=== PATIENT | male | born 1955 | race American Indian/Alaskan Native ===

== ENCOUNTER 2016-04-24 14:02 | Observation (INO) | payer MEDICARE ==
[2016-04-24] MEDS ORDERED: Albuterol/Ipratropium NEB.SOL* Albuterol 2.5 MG/Ipratropium 0.5 MG 3 ML INH ONE ×2 (14:17→14:20)
[2016-04-24] MEDS ORDERED: methylPREDNISolone 125 MG* 2 ML VIAL IV ONE ×2 (14:22→20:23)
[2016-04-24 14:46] LABS: Hematocrit 44 % (42-52); Hemoglobin 14.8 g/dl (14.0-18.0); Mean Corpuscular HGB Conc 34 g/dl (31-36); Mean Corpuscular Hemoglobin 28 pg (27-31); Mean Corpuscular Volume 84 fL (80-94); Mean Platelet Volume 8 um3 (7.4-10.4); Red Blood Count 5.22 10^6/ul (4.0-5.4); Red Cell Distribution Width 15 % (10.5-15); White Blood Count 10.4 10^3/ul (3.5-10.8)
--- NOTE | 2016-04-24 14:55 | RAD ---
INDICATION: Chest pain COMPARISON: January 07, 2013 TECHNIQUE: An AP portable view obtained at 1337 hours is submitted. FINDINGS: Bones/Soft Tissues: There are no acute bony findings. Cardiomediastinal: The cardiomediastinal silhouette is normal. Lungs: There are no acute infiltrates. There are chronic interstitial changes Pleura: There are no pleural effusions. Other: None IMPRESSION: CHRONIC INTERSTITIAL CHANGES, UNCHANGED.
[2016-04-24 15:12] LABS: Albumin 4.4 g/dL (3.2-5.2); BUN/Creatinine Ratio 15.1 (8-20); Calcium 9.2 mg/dL (8.6-10.3); EGFR Non-African American 71.5 (>60); Potassium 4.2 mmol/L (3.5-5.0); Total Bilirubin 0.4 mg/dL (0.2-1.0); Total Protein 7.4 g/dL (6.4-8.9)
[2016-04-24] MEDS ORDERED: DOXYcycline IV* 100 MG in NS 0.9% 250 ML* 250 ML IVPB ONE (15:25)
[2016-04-24] MEDS ORDERED: Albuterol/Ipratropium NEB.SOL* Albuterol 2.5 MG/Ipratropium 0.5 MG 3 ML ONE (16:09)
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
[2016-04-24] MEDS: Enoxaparin(*) 40 MG/0.4 ML SYR SUBCUT SCH (17:02)
[2016-04-24 17:16] LABS: Troponin I 0.01 ng/mL (<0.04)
[2016-04-24] MEDS ORDERED: Albuterol/Ipratropium NEB.SOL* Albuterol 2.5 MG/Ipratropium 0.5 MG 3 ML INH SCH (18:00)
[2016-04-24] MEDS: Albuterol/Ipratropium NEB.SOL* Albuterol 2.5 MG/Ipratropium 0.5 MG 3 ML INH SCH ×2 (19:57→23:43)
[2016-04-24] MEDS ORDERED: Mometasone/Formoter 100/5 MDI INH SCH (21:00)
[2016-04-25] MEDS: Albuterol/Ipratropium NEB.SOL* Albuterol 2.5 MG/Ipratropium 0.5 MG 3 ML INH SCH ×5 (04:04→14:21)
[2016-04-25] MEDS: DOXYcycline IV* 100 MG in NS 0.9% 250 ML* 250 ML IVPB SCH ×2 (04:18→15:35)
[2016-04-25] MEDS ORDERED: Omeprazole CAP* 20 MG PO SCH (06:00)
[2016-04-25] MEDS ORDERED: predniSONE TAB* 20 MG PO SCH (08:30)
[2016-04-25] MEDS ORDERED: Furosemide TAB* 20 MG PO SCH (09:00)
[2016-04-25] MEDS ORDERED: Spiriva Inhaler DEVICE* 1 EACH DEVICE INH ONE (09:00)
[2016-04-25] MEDS ORDERED: Mometasone/Formoter 200/5 MDI INH SCH (09:00)
[2016-04-25] MEDS ORDERED: Tiotropium CAP.INH* CAP.INH/18 MCG (USE ORDER SET !) INH SCH ×2 (09:00)
[2016-04-25 16:00] VITALS: BP 139/76
[2016-04-25] MEDS: Enoxaparin(*) 40 MG/0.4 ML SYR SUBCUT SCH (16:39)
--- NOTE | 2016-04-26 01:24 | DS ---
CC: Dr. King DISCHARGE SUMMARY: DATE OF ADMISSION: 04/24/16 DATE OF DISCHARGE: 04/25/16 PRIMARY CARE PROVIDER: Philippe King MD DISCHARGE DIAGNOSES: 1. Chronic obstructive pulmonary disease exacerbation. 2. Acute bronchitis. SECONDARY DIAGNOSIS: Chronic obstructive pulmonary disease, on oxygen at 3 L continuously at home. MEDICATIONS AT DISCHARGE: Include: 1. Albuterol and Atrovent nebulizers every 4 hours p.r.n. 2. Albuterol inhaler 2 puffs every 4 hours p.r.n. 3. Ascorbic acid 500 mg daily. 4. Doxycycline 100 mg 1 tablet p.o. b.i.d. for 7 days total. 5. Advair Diskus 500/50 mcg 1 puff b.i.d. 6. Lasix 20 mg daily. 7. Ibuprofen 800 mg every 6 hours p.r.n. 8. Omeprazole 20 mg daily. 9. Spiriva 1 inhalation daily. 10. Prednisone 50 mg daily for 5 days total. LABORATORY DATA AND STUDIES PERFORMED DURING THE HOSPITAL STAY: Unchanged from admission. HOSPITALIZATION COURSE: Jey Vogel is a 60-year-old male with a history of obesity and COPD, on oxy gen at 3 L continuously who presented with COPD exacerbation. The patient was placed on steroids an d nebulizer treatments and he improved enough to be able to go home on 04/25/16. PHYSICAL EXAMINATION AT THE TIME OF DISCHARGE: General: The patient is a very pleasant 60-year-old male, who is in no acute distress. Alert, awake, and oriented x3. Vital signs: Blood pressure of 139/76, heart rate of 96 and regular, respiratory rate 20, oxygen saturation 96% on 3 L of oxygen n arsenio cannula, and temperature 98.1. HEENT: Head: Atraumatic, normocephalic. Eyes: Pupils equal, reactive to light and accommodation. Oropharynx clear. Mucosa moist. Neck: Supple. No JVD, no b ruit bilaterally. Respiratory: Distant breath sounds bilaterally. No wheezing. Cardiovascular: Regular rate and rhythm. No murmur. Abdomen: Protuberant, soft, and nontender. Bowel sounds prese nt in all 4 quadrants. Extremities: There is +1 pitting pedal edema. Pulses are +2 bilaterally. No clubbing or cyanosis. Neuro Evaluation: Speech clear. Cranial nerves II through XII grossly in tact. Motor strength is 5/5 bilaterally. DISCHARGE INSTRUCTIONS: At discharge, the patient is recommended to follow up with Dr. King in ap proximately 4 to 7 days and our office is in the process of scheduling this appointment. Please note that this is a short synopsis of the patient's hospitalization. Please refer to further medical records for details. [id number]/[facility] #: [id number]
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
== END 2016-04-25 18:00 | disposition home or self-care (01) ==
LOC: ED 14:02 → INTOOBSV 16:29 → MED 16:29
PROVIDERS: ADMIT Internal Medicine; ATTEND Internal Medicine
DX: J44.1 Chronic obstructive pulmonary disease with (acute) exacerbation (principal); J20.9 Acute bronchitis, unspecified; J44.0 Chronic obstructive pulmonary disease with (acute) lower respiratory infection; Z87.891 Personal history of nicotine dependence; E66.01 Morbid (severe) obesity due to excess calories; G47.33 Obstructive sleep apnea (adult) (pediatric); E78.00 Pure hypercholesterolemia, unspecified; K21.9 Gastro-esophageal reflux disease without esophagitis; R07.9 Chest pain, unspecified; R94.31 Abnormal electrocardiogram [ECG] [EKG]; Z99.81 Dependence on supplemental oxygen; Z79.899 Other long term (current) drug therapy; Z88.0 Allergy status to penicillin; Z88.1 Allergy status to other antibiotic agents
CPT/HCPCS: 36415; 71010; 80053; 82550; 82553; 83605; 83874; 83880; 84484; 85025; 85610; 85730; 87040; 93005; 94640; 94760; 96365; 96375; 96376; 99284; A9270-GY; G0378; J1650; J2930; J7512

== ENCOUNTER 2017-04-15 09:39 | Inpatient (IN) | payer MEDICARE ==
[2017-04-15] MEDS ORDERED: Albuterol/Ipratropium NEB.SOL* Albuterol 2.5 MG/Ipratropium 0.5 MG 3 ML ONE (10:00)
[2017-04-15] MEDS ORDERED: methylPREDNISolone 125 MG* 2 ML VIAL ONE (10:01)
[2017-04-15] MEDS ORDERED: methylPREDNISolone 125 MG* 2 ML VIAL IV ONE (10:05)
[2017-04-15] MEDS ORDERED: Albuterol/Ipratropium NEB.SOL* Albuterol 2.5 MG/Ipratropium 0.5 MG 3 ML INH ONE ×3 (10:05→10:16)
[2017-04-15] MEDS ORDERED: Magnesium Sulfate 2 GM IV* 2 GM/50 ML BAG IVPB ONE (10:07)
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
[2017-04-15] MEDS ORDERED: Ketorolac INJ* 30 MG/ML 1 ML VIAL IV PUSH ONE (10:35)
[2017-04-15 10:37] LABS: ABS Basophils 0 10^3/ul (0-0.2); ABS Eosinophils 0.2 10^3/ul (0-0.6); ABS Lymphocytes 0.7 10^3/ul (1.0-4.8); ABS Neutrophils 10.4 10^3/ul (1.5-7.7); ABS Nucleated RBC 0 10^3/ul; Eosinophil % 1.3 % (0-6); Hematocrit 44 % (42-52); Hemoglobin 14.5 g/dl (14.0-18.0); Lymphocyte % 5.4 % (25-47); Mean Corpuscular HGB Conc 33 g/dl (31-36); Mean Corpuscular Hemoglobin 28 pg (27-31); Mean Corpuscular Volume 85 fL (80-94); Mean Platelet Volume 8 um3 (7.4-10.4); Nucleated Red Blood Cells % 0; Platelet Count 308 10^3/ul (150-450); Red Blood Count 5.15 10^6/ul (4.0-5.4); Red Cell Distribution Width 15 % (10.5-15); White Blood Count 12.2 10^3/ul (3.5-10.8)
[2017-04-15] MEDS ORDERED: Ketorolac INJ* 15 MG/ML 1 ML VIAL ONE (10:52)
--- NOTE | 2017-04-15 10:58 | RAD ---
HISTORY: Cough, wheezing COMPARISONS: October 22, 2016 VIEWS: 1: frontal portable view of the chest at 10:30 AM FINDINGS: LINES AND TUBES: None. CARDIOMEDIASTINAL SILHOUETTE: The cardiomediastinal silhouette is normal for portable technique. PLEURA: The costophrenic angles are sharp. No pleural abnormalities are noted. LUNG PARENCHYMA: There is diffuse pattern of reticular opacification. ABDOMEN: The upper abdomen is clear. There is no subphrenic gas. BONES AND SOFT TISSUES: No bone or soft tissue abnormalities are noted. IMPRESSION: DIFFUSE INTERSTITIAL OPACIFICATION SUGGESTIVE OF CHRONIC INTERSTITIAL DISEASE VERSUS PULMONARY INTERSTITIAL EDEMA, SIMILAR TO THE PREVIOUS EXAMINATION
[2017-04-15] MEDS ORDERED: Oseltamivir CAP* 75 MG PO ONE (11:09)
[2017-04-15 11:30] LABS: EGFR Non-African American 77.1 (>60)
[2017-04-15] MEDS ORDERED: NS 0.9% 1000 ML* 1,000 ML IV ONE (11:39)
[2017-04-15] MEDS ORDERED: Albuterol 2.5 MG/3 ML NEB.SOL* (0.083%) INH PRN (11:39)
[2017-04-15] MEDS ORDERED: Aspirin Low Dose CHEW TAB* 81 MG PO ONE (11:48)
[2017-04-15] MEDS ORDERED: Azithromycin IV(*) 500 MG in D5W 250 ML BAG* 250 ML IVPB SCH (12:00)
[2017-04-15] MEDS: predniSONE TAB* 20 MG PO SCH (12:34)
[2017-04-15] MEDS: NS 0.9% 1000 ML* 1,000 ML IV SCH (13:26)
[2017-04-15] MEDS: Heparin VIAL(*) 5000 UNITS/ML VIAL (FIVE THOUSAND) SUBCUT SCH ×2 (13:41→21:49)
[2017-04-15] MEDS: Albuterol/Ipratropium NEB.SOL* Albuterol 2.5 MG/Ipratropium 0.5 MG 3 ML INH SCH ×3 (14:06→23:17)
[2017-04-15 14:11] LABS: Urine Appearance Clear; Urine Blood Negative (Negative); Urine Color Yellow; Urine Ketones Negative (Negative); Urine Protein Negative (Negative); Urine Urobilinogen Negative (Negative)
[2017-04-15] MEDS: Azithromycin IV(*) 500 MG in NS 0.9% 250 ML* 250 ML IVPB SCH (14:33)
--- NOTE | 2017-04-15 15:19 | HP ---
CC: Dr. King * HISTORY AND PHYSICAL: DATE OF ADMISSION: 04/15/17 PRIMARY CARE PROVIDER: Dr. King. ATTENDING PHYSICIAN WHILE IN THE HOSPITAL: Dr. Keila Purvis * (report dictated by Epifanio Lyles NP). CHIEF COMPLAINT: 1. Cough. 2. Shortness of breath. 3. Chest pain. HISTORY OF PRESENT ILLNESS: Mr. Vogel is a 61-year-old male patient, he carries a history of COPD. He says he has been feeling under the weather and sick for the last several weeks. He had a cold he says about a month ago, he got over it, but then in the last 10 days, he has had sinus congestion. He has been bringing up some green-type sputum. He has had rhinorrhea. He has had the sore throat. About the last 3 days, he has been having sharp stabbing chest discomfort from his throat all the way down to his left ribs, much worse when he coughs and it has been constant for the last 3 days. For the last 2 days, he has had more shortness of breath particularly with exertion. He says the pain in his chest has been getting worse with exertion. It has been constant and it gets a lot worse when he is coughing or when he takes a deep breath, and he says that this is like a sharp stabbing pain. He says that he has not had any weight gain. He says he has been aching all over. He has had chills. He has felt a little bit of nausea. He says he was on an antibiotic initially for the questionable sinus infection, 10 days ago, he has finished it and he just started another course of Biaxin. He just has had not been getting any better and because of his breathing getting worse particularly with any type of exertion, the worsening cough, aching, and the fevers, he decided to come into the ED today because he just was not getting any better. Ultimately, he was found to have flu and elevated troponin of 0.05. We were asked to evaluate for admission. He denies any calf or leg pain. He denies having any orthopnea and denies having any loss of consciousness. PAST MEDICAL HISTORY: Significant for: 1. COPD. 2. Trigeminal neuralgia. 3. VANESSA. PAST SURGICAL HISTORY: He has had: 1. Cataract extraction. 2. Tonsillectomy. 3. Hernia repair. MEDICATIONS: His home meds include: 1. Albuterol 2 puffs inhaled every 4 hours. 2. Albuterol nebulizer 1 neb every 4 hours as needed. 3. Ibuprofen 800 mg every 6 hours as needed. 4. Lasix 20 mg p.o. daily. 5. Advair 1 puff inhaled b.i.d. 6. Vitamin C 500 mg p.o. daily. 7. DuoNeb 1 neb every 3 hours as needed. 8. Prilosec 20 mg daily. 9. Atrovent 0.5 mg inhaled every 4 hours as needed. 10. Prednisone 50 mg daily as needed. We will need to clarify that with his PCP. 11. Spiriva 1 capsule inhaled daily. 12. Biaxin 500 mg p.o. b.i.d. ALLERGIES TO MEDICATIONS: Include PENICILLIN and LEVAQUIN. FAMILY HISTORY: Mother had history of heart disease and Santillan-Silvestre. Father had history of COPD. SOCIAL HISTORY: He is a former smoker. He does not drink alcohol. His surrogate decision maker is his significant other, Kati. REVIEW OF SYSTEMS: There is no documented fever. He did admit to having chills. He denies having any significant weight change. There was no double vision. He denies having any ear discharge. There was some rhinorrhea. There is sore throat. There is congestion. He denies having any abdominal pain. He does admit to having chest pain, described as sharp in nature and constant for the last 2 to 3 days, worse with cough and deep breath. Denies having any abdominal pain. He did admit to having some nausea, but no vomiting, no dysuria , no frequency. He denied any loss of consciousness. No pruritus and no skin ulcerations. Denies any seizure activity or any loss of consciousness. Review of 14 systems completed, all others negative. PHYSICAL EXAMINATION GENERAL: At this time, Mr. Vogel is a 61-year-old male patient, he is morbidly obese. He is sitting in the ED stretcher. He does not appear to be in any acute distress. VITAL SIGNS: Reveal blood pressure 145/87, pulse 94, respirations initially were 24, his O2 sats 96% on 2 L, temperature 98.8. Respirations now are 18 and his heart rate is about 103. HEENT: Head, atraumatic and normocephalic. Eyes: EOMs are intact. Sclerae were anicteric and not pale. Throat: Oral mucosa appears to be dry. No oropharyngeal erythema. NECK: Supple. LUNGS: He had wheezing noted, expiratory throughout. No rhonchi or rales were noted. HEART: Sounds S1 and S2, regular rate and rhythm. He had no murmurs, rubs, or gallops. ABDOMEN: Soft, flat, nontender. Bowel sounds present. EXTREMITIES: Pulses were 2+ throughout. He had no peripheral edema. He is moving all 4 extremities with 5/5 strength. NEUROLOGIC: The patient is awake, alert, oriented x3. His tongue is midline. Seaming Machine Operator were equal. He had no gross focal deficits. SKIN: Grossly intact. DIAGNOSTIC STUDIES/LAB DATA: WBC 12.2, RBC of 5.15, hemoglobin of 14.5, hematocrit of 44, and platelet count of 308. Blood gas showed pH of 7.43, PCO2 of 40, PO2 of 88. His sodium was 133, potassium of 4, chloride 97, bicarb 27, BUN 15, creatinine 0.99, glucose 141, calcium 9.1, mag 2.0. Total bili 0.6, AST 23, ALT 37, alk phos 52. CK . Troponin 0.05. Albumin of 4.5. Serology was positive for flu. He had a chest x-ray obtained today. My impression: I did not appreciate any acute infiltrates. It looks like he has diffuse opacification suggestive of chronic interstitial lung disease as per radiology report versus pulmonary interstitial edema similar to the previous exam. Reviewing the previous exam from a year ago, it does appear to be similar. He did have an EKG obtained today as well. EKG shows sinus tachycardia with a rate of 112. He does have a right bundle branch block. In reviewing the previous EKG, he did appear to have incomplete right bundle branch block previously and is now complete. Old medical records were reviewed. ASSESSMENT AND PLAN: Mr. Vogel is a 61-year-old male patient coming into the ED today with complaints of cough, weakness, aching all over, and just not feeling well, particularly the last couple of days, previously leading up to this having upper respiratory infection symptoms, on evaluation, was found to have influenza. He will be admitted under observation status for: 1. Chronic obstructive pulmonary disease exacerbation secondary to influenza. At this point, we will go ahead and put him on steroids, nebs every 4 hours, p.r.n. albuterol. We also will start him on Tamiflu and I am going to put him on prednisone in addition to his azithromycin and ceftriaxone. We will go ahead and get legionella antigen, Strep pneumo antigen. I will check his lactate. I did also order blood cultures as well. We can give him 1 liter of fluids now and then normal saline at 100 an hour and continue to follow him closely. 2. Indeterminate troponin. Again, he was having chest pain, but this does sound like it is pleuritic in nature related to his most likely the flu and chronic obstructive pulmonary disease exacerbation. secondary to demand ischemia due to the chronic obstructive pulmonary disease exacerbation. The plan will be to trend these. If they go up, I will get an echocardiogram and I would also get Cardiology consult. I am going to put the patient on aspirin for now. He is not having any chest pain, it is really only when he coughs, so again, I think this is most likely due to his chronic obstructive pulmonary disease exacerbation and some demand ischemia. We will trend these and follow. When he is over the flu, his PCP can consider an outpatient stress test. 3. Trigeminal neuralgia. Not an active issue. 4. Obstructive sleep apnea. He says he wears BiPAP at night. I did place this as an order. 5. DVT prophylaxis. He was placed on heparin subcu. 6. Code status. He is full code. 7. Fluids, electrolytes, and nutrition. He can have a regular diet. TIME SPENT: On the admission was 60 minutes, greater than half the time was spent [id number] with the patient obtaining my history and physical; the other half time was spent going over the plan of care with the patient and implementing plan of care. I did discuss the plan of care with my attending, Dr. Purvis; she is in agreement. EPIFANIO LYLES NP [id number]/[facility] #: [id number] NANDINI
[2017-04-15] MEDS: cefTRIAXone(*) 1 GM in NS 0.9% 50 ML* 50 ML IVPB SCH (18:17)
[2017-04-15] MEDS: Mometasone/Formoter 200/5 MDI INH SCH (19:59)
[2017-04-15] MEDS: Oseltamivir CAP* 75 MG PO SCH (21:49)
[2017-04-15] MEDS ORDERED: Ibuprofen TAB* 600 MG PO ONE (22:20)
[2017-04-15] MEDS ORDERED: Ibuprofen TAB* 600 MG ONE (23:26)
[2017-04-16] MEDS: Albuterol/Ipratropium NEB.SOL* Albuterol 2.5 MG/Ipratropium 0.5 MG 3 ML INH SCH ×6 (03:41→23:21)
[2017-04-16] MEDS: NS 0.9% 1000 ML* 1,000 ML IV SCH (04:06)
[2017-04-16] MEDS: Heparin VIAL(*) 5000 UNITS/ML VIAL (FIVE THOUSAND) SUBCUT SCH ×3 (06:07→21:57)
[2017-04-16 06:31] LABS: ABS Basophils 0 10^3/ul (0-0.2); ABS Eosinophils 0 10^3/ul (0-0.6); ABS Lymphocytes 0.5 10^3/ul (1.0-4.8); ABS Monocytes 0.6 10^3/ul (0-0.8); ABS Neutrophils 11.9 10^3/ul (1.5-7.7); ABS Nucleated RBC 0.02 10^3/ul; Eosinophil % 0 % (0-6); Hematocrit 40 % (42-52); Hemoglobin 13.5 g/dl (14.0-18.0); Lymphocyte % 3.6 % (25-47); Mean Corpuscular HGB Conc 34 g/dl (31-36); Mean Corpuscular Hemoglobin 29 pg (27-31); Mean Corpuscular Volume 85 fL (80-94); Mean Platelet Volume 8 um3 (7.4-10.4); Nucleated Red Blood Cells % 0.1; Platelet Count 328 10^3/ul (150-450); Red Blood Count 4.71 10^6/ul (4.0-5.4); Red Cell Distribution Width 15 % (10.5-15); White Blood Count 13.1 10^3/ul (3.5-10.8)
[2017-04-16] MEDS: Mometasone/Formoter 200/5 MDI INH SCH ×2 (07:46→20:46)
[2017-04-16] MEDS: Oseltamivir CAP* 75 MG PO SCH ×2 (08:54→20:20)
[2017-04-16] MEDS: Omeprazole CAP* 20 MG PO SCH (08:54)
[2017-04-16] MEDS: Ascorbic Acid TAB* 500 MG PO SCH (08:54)
[2017-04-16] MEDS: Aspirin Low Dose CHEW TAB* 81 MG PO SCH (08:54)
[2017-04-16] MEDS: predniSONE TAB* 20 MG PO SCH (08:54)
[2017-04-16] MEDS ORDERED: Acetaminop/Codeine 30 MG TAB* 1 TAB (300 MG/30 MG) PO PRN (10:57)
[2017-04-16] MEDS ORDERED: Morphine INJ* 2 MG/ML 1 ML SYRINGE (TWO MG - NEW SYRINGE VERSION) ONE (11:30)
[2017-04-16] MEDS ORDERED: Morphine INJ* 2 MG/ML 1 ML SYRINGE (TWO MG - NEW SYRINGE VERSION) IV ONE ×2 (11:36→11:37)
[2017-04-16] MEDS ORDERED: Morphine INJ* 10 MG/ML 1 ML CARPUJECT ONE (12:15)
[2017-04-16] MEDS ORDERED: Morphine INJ* 10 MG/ML 1 ML CARPUJECT IV ONE (12:16)
--- NOTE | 2017-04-16 12:26 | CONSULT ---
Consult Consult: CRITICAL CARE MEDICINE DATE: 04/16/17 TIME: 1200 REFERRING PROVIDER: David PITTMAN REASON/CHIEF COMPLAINT: acute on chronic hypoxic resp failure HISTORY OF PRESENT ILLNESS: 61 M on 2L O2 chronically and rohan on nocturnal bipap presenting yesterday with progressive sob and sinus complaints with influ A +, as well as pos strept ag. Admitted to floor with no new infiltrate and on his chronic O2. Was tx with neb and exaccerabtion of coughing and resp dynamics needing flow rescue and regain reserve and brought to ICU. REVIEW OF SYSTEMS: As per HPI. PAST MEDICAL HISTORY: As per HPI. MEDICATIONS: Reviewed. ALLERGIES: Reviewed. PCN, levaquin SOCIAL HISTORY: Reviewed. 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 PHYSICAL EXAM: Vital Signs: Reviewed. Neurologic: communicating, nonfocal HEENT: anicteric Cardiovascular: distant, reg Respiratory: diffuse wheeze and short inhalation cut off to avoid cough, and prolonged exhalation stopped early as well to avoid cough and to allow peep Abdomen: obese, soft Extremities: warm Access: piv LABS: Reviewed. IMAGING: Reviewed. MEDICATIONS: Reviewed. ASSESSMENT: 61 M Acute on chronic hypoxic resp failure Influenza A pna Superimposed stept pna infection on top of influenza PLAN: Neurologic: stable but needs anxiolytic and cough relief to allow better flow phases. utilize morphine and perhaps benzo. Cardiovascular: perfusing. vol status ok and would avoid extra interstial water. dc ivf. Respiratory: diffuse wheeze associated with viral pna and need to allow better phases and avoid reactive airways. placed on high flow. morphine. utilize nocturnal bipap as needed. may need to repeat cxr to ensure no ali or blossuming lobar pna. Gastrointestinal: po ok Renal/Metabolic: stable Infectious Disease: continued C3 for strept, and azitho for anti-inflam and 5 days tamiflu. Hematology: stable. hsq Endocrine: on steroids. f/u bg Musculoskeletal: avoid deconditioning Psych/Social: pt expressed understanding Supportive and preventative care as ordered. SUP: on ppi VTE prophylaxis: heparin Disposition: ICU with hospitalists Code Status: DNR Critical Care Time: 35min D/w TOYA Rincon DO
[2017-04-16] MEDS: methylPREDNISolone SOD 40 MG* 1 ML VIAL IV SCH ×2 (12:47→20:20)
[2017-04-16] MEDS: Azithromycin IV(*) 500 MG in NS 0.9% 250 ML* 250 ML IVPB SCH (13:34)
[2017-04-16] MEDS ORDERED: Spiriva Inhaler DEVICE* 1 EACH DEVICE SCH (15:00)
[2017-04-16] MEDS: cefTRIAXone(*) 1 GM in NS 0.9% 50 ML* 50 ML IVPB SCH (15:57)
--- NOTE | 2017-04-16 16:44 | PN ---
Subjective Date of Service: 04/16/17 Interval History: C/o Cough and increased shortness of breath, Patient with severe respiratory distress, skin color red, speaking in short 1 to 2 work sentences, c/o extreme pain with coughing, diaphoretic Family History: Unchanged from Admission Social History: Unchanged from Admission Past Medical History: Unchanged from Admission Objective Active Medications: Acetaminophen/Codeine Phosphate (Tylenol/Codeine 30 Mg Tab*) 1 tab PO Q4H PRN PRN Reason: PAIN Last Admin: 04/16/17 11:22 Dose: 1 tab Albuterol (Ventolin 2.5 Mg/3 Ml Neb.Amirah*) 2.5 mg INH Q2H PRN PRN Reason: SOB/WHEEZING Albuterol/Ipratropium (Duoneb (Albuterol 2.5 Mg/Ipratropium 0.5 Mg)) 1 neb INH [id number] AWAKE [facility] Last Admin: 04/16/17 15:38 Dose: 1 neb Ascorbic Acid (Vitamin C Tab*) 500 mg PO QAM [facility] Last Admin: 04/16/17 08:54 Dose: 500 mg Aspirin (Aspirin Low Dose Tab*) 81 mg PO DAILY [facility] Last Admin: 04/16/17 08:54 Dose: 81 mg Device (Tiotropium Inhaler Device*) 1 each INH ONCE ONE Stop: 04/17/17 09:01 Heparin Sodium (Porcine) (Heparin Vial(*)) 5,000 units SUBCUT Q8HR [facility] Last Admin: 04/16/17 13:34 Dose: 5,000 units Azithromycin 500 mg/ Sodium (Chloride) 250 mls @ 250 mls/hr IVPB Q24H [facility] Last Admin: 04/16/17 13:34 Dose: 250 mls/hr Ceftriaxone Sodium 1 gm/ (Sodium Chloride) 50 mls @ 200 mls/hr IVPB Q24H [facility] Last Admin: 04/16/17 15:57 Dose: 200 mls/hr Methylprednisolone Sodium Succinate (Solu-Medrol 40 Mg) 40 mg IV Q8H [facility] Last Admin: 04/16/17 12:47 Dose: 40 mg Mometasone Furoate/Formoterol Fumar (Dulera 200/5 Mdi*) 2 puff INH BID [facility] Last Admin: 04/16/17 07:46 Dose: 2 puff Omeprazole (Prilosec Cap*) 20 mg PO DAILY [facility] Last Admin: 04/16/17 08:54 Dose: 20 mg Oseltamivir Phosphate (Tamiflu Cap*) 75 mg PO BID [facility] Stop: 04/20/17 09:01 Last Admin: 04/16/17 08:54 Dose: 75 mg Tiotropium [place] (Spiriva Cap.Inh*) 1 cap INH DAILY [facility] Vital Signs - 8 hr 04/16/17 04/16/17 04/16/17 11:19 11:22 11:32 Temperature 97.8 F Pulse Rate 91 102 Respiratory 20 22 24 Rate Blood Pressure 147/77 (mmHg) O2 Sat by Pulse 97 99 Oximetry 04/16/17 04/16/17 04/16/17 12:00 12:05 12:09 Temperature 97.4 F Pulse Rate 108 109 105 Respiratory 25 25 Rate Blood Pressure 151/84 151/84 (mmHg) O2 Sat by Pulse 100 100 100 Oximetry 04/16/17 04/16/17 04/16/17 12:20 13:00 13:17 Temperature Pulse Rate 89 Respiratory 28 16 15 Rate Blood Pressure (mmHg) O2 Sat by Pulse 99 Oximetry 04/16/17 04/16/17 04/16/17 13:37 13:45 14:00 Temperature Pulse Rate 80 75 83 Respiratory 17 18 17 Rate Blood Pressure 134/82 132/77 126/82 (mmHg) O2 Sat by Pulse 99 98 99 Oximetry 04/16/17 04/16/17 04/16/17 14:01 14:15 14:45 Temperature Pulse Rate 80 83 77 Respiratory 17 16 16 Rate Blood Pressure 128/80 132/78 (mmHg) O2 Sat by Pulse 98 98 98 Oximetry 04/16/17 04/16/17 04/16/17 15:00 15:40 15:42 Temperature Pulse Rate 79 74 Respiratory 19 13 17 Rate Blood Pressure (mmHg) O2 Sat by Pulse 97 98 Oximetry 04/16/17 04/16/17 16:00 16:01 Temperature 98.4 F Pulse Rate 73 72 Respiratory 15 15 Rate Blood Pressure 139/76 (mmHg) O2 Sat by Pulse 99 99 Oximetry Oxygen Devices in Use Now: Nasal Cannula, High Flow Heated Nasal Cannula Appearance: severe respiratory distress, diaphoretic, appears restless and uncomfortable Eyes: No Scleral Icterus Ears/Nose/Mouth/Throat: Clear Oropharnyx, Mucous Membranes Moist Neck: NL Appearance and Movements; NL JVP, Trachea Midline Respiratory: Symmetrical Chest Expansion and Respiratory Effort, - - labored breathing, inspiratory and expiratory wheezes t/o bilat, unable to take deep breath, shallow rapid breathing noted Cardiovascular: NL Sounds; No Murmurs; No JVD, No Edema - tachycardic Abdominal: NL Sounds; No Tenderness; No Distention Extremities: No Edema, No Clubbing, Cyanosis Skin: No Rash or Ulcers, - - color flushed Neurological: Alert and Oriented x 3 Result Diagrams: 04/17/17 05:38 04/17/17 05:38 Assess/Plan/Problems-Billing Assessment: Mr. Vogel is a 61 y.o male with a chronic history of COPD and oxygen dependent. Presented to the Emergency room with increased shortness of breath and cough. Flu A positive , Strep infection in the sputum and urine. Upon evaluating MR. Vogel this if was found to be in severe respiratory distress despite breathing treatments, he was transferred to the ICU and placed on Vapo therm for respiratory support. - Patient Problems (1) Acute and chronic respiratory failure ([id number]) Current Visit: Yes Status: Acute Code(s): J96.20 - ACUTE AND CHR RESP FAILURE, UNSP W HYPOXIA OR HYPERCAPNIA SNOMED Code(s): 54174139 Comment: Transferred to ICU for monitoring and Vapo therm oxygen Change PO steroids to IV solumedrol 40 mg every 8 hours Albuterol and DUO NEBS as needed Suspect this is related to underlying PNA strep infection and lung inflamation Flu A positive (2) Influenza A Current Visit: Yes Status: Acute Code(s): J10.1 - FLU DUE TO OTH IDENT INFLUENZA VIRUS W OTH RESP MANIFEST SNOMED Code(s): 636517892 Comment: tamiflu for 5 days supportive care (3) Streptococcus pneumoniae infection Current Visit: Yes Status: Acute Comment: Ceftriaxone 1 gram daily IV (4) COPD exacerbation Current Visit: No Status: Acute Code(s): J44.1 - CHRONIC OBSTRUCTIVE PULMONARY DISEASE W (ACUTE) EXACERBATION SNOMED Code(s): 412113362055608 Comment: Patient recieved 125 mg methylprednisolon in ED. WIll change po prednisone to Solumedrol 40 mg Q 8 hours Albuterol/ipratropium by nebs vapotherm - high flow oxygen Azithromycin 500mg IVPB (5) DVT prophylaxis Current Visit: Yes Status: Acute Code(s): MVF8518 - SNOMED Code(s): 850713254 Comment: heparin sub Q (6) DNR (do not resuscitate) Current Visit: Yes Status: Acute Status and Disposition: Inpatient ICU , vapo therm oxygen support Points of Discussion: 1430: patient respiratory status has improved with Vapo therm, able to speak full sentences, continues to have expiratory wheezes, Patient reports that pain associated with coughing has improved. 1730: Patient continues to improve with Vapo therm, Appears more relaxed, able to breath deeper respiration rate is slower, will continue to monitor in the ICU over night.
[2017-04-17] MEDS: Albuterol/Ipratropium NEB.SOL* Albuterol 2.5 MG/Ipratropium 0.5 MG 3 ML INH SCH ×6 (03:27→23:38)
[2017-04-17] MEDS: methylPREDNISolone SOD 40 MG* 1 ML VIAL IV SCH ×3 (05:44→19:55)
[2017-04-17] MEDS: Heparin VIAL(*) 5000 UNITS/ML VIAL (FIVE THOUSAND) SUBCUT SCH ×3 (05:44→23:32)
[2017-04-17 06:15] LABS: ABS Basophils 0 10^3/ul (0-0.2); ABS Eosinophils 0 10^3/ul (0-0.6); ABS Lymphocytes 0.7 10^3/ul (1.0-4.8); ABS Monocytes 0.9 10^3/ul (0-0.8); ABS Neutrophils 13.3 10^3/ul (1.5-7.7); ABS Nucleated RBC 0 10^3/ul; Eosinophil % 0 % (0-6); Hematocrit 38 % (42-52); Hemoglobin 12.6 g/dl (14.0-18.0); Lymphocyte % 4.7 % (25-47); Mean Corpuscular HGB Conc 33 g/dl (31-36); Mean Corpuscular Hemoglobin 29 pg (27-31); Mean Corpuscular Volume 86 fL (80-94); Mean Platelet Volume 8 um3 (7.4-10.4); Nucleated Red Blood Cells % 0.1; Platelet Count 315 10^3/ul (150-450); Red Blood Count 4.41 10^6/ul (4.0-5.4); Red Cell Distribution Width 15 % (10.5-15); White Blood Count 14.9 10^3/ul (3.5-10.8)
[2017-04-17 06:32] LABS: EGFR Non-African American 87.2 (>60)
[2017-04-17] MEDS: Mometasone/Formoter 200/5 MDI INH SCH ×2 (07:10→19:34)
[2017-04-17] MEDS: Tiotropium CAP.INH* CAP.INH/18 MCG (USE ORDER SET !) INH SCH (07:10)
[2017-04-17] MEDS: Ascorbic Acid TAB* 500 MG PO SCH (08:28)
[2017-04-17] MEDS: Omeprazole CAP* 20 MG PO SCH (08:28)
[2017-04-17] MEDS: Oseltamivir CAP* 75 MG PO SCH ×2 (08:28→19:55)
[2017-04-17] MEDS: Aspirin Low Dose CHEW TAB* 81 MG PO SCH (08:28)
[2017-04-17] MEDS ORDERED: Spiriva Inhaler DEVICE* 1 EACH DEVICE INH ONE (09:00)
--- NOTE | 2017-04-17 13:43 | PN ---
Subjective Date of Service: 04/17/17 Interval History: Improved to day , States that breathing is better, respirations non labored. sitting up in chair, Continues to c/o chest pain with deep breath and coughing but has improved since yesterday. Denies increased shortness of breath, Denies abd pain, N/V/D Family History: Unchanged from Admission Social History: Unchanged from Admission Past Medical History: Unchanged from Admission Objective Active Medications: Acetaminophen/Codeine Phosphate (Tylenol/Codeine 30 Mg Tab*) 1 tab PO Q4H PRN PRN Reason: PAIN Last Admin: 04/16/17 11:22 Dose: 1 tab Albuterol (Ventolin 2.5 Mg/3 Ml Neb.Amirah*) 2.5 mg INH Q2H PRN PRN Reason: SOB/WHEEZING Albuterol/Ipratropium (Duoneb (Albuterol 2.5 Mg/Ipratropium 0.5 Mg)) 1 neb INH [id number] AWAKE [facility] Last Admin: 04/17/17 10:53 Dose: 1 neb Ascorbic Acid (Vitamin C Tab*) 500 mg PO QAM [facility] Last Admin: 04/17/17 08:28 Dose: 500 mg Aspirin (Aspirin Low Dose Tab*) 81 mg PO DAILY [facility] Last Admin: 04/17/17 08:28 Dose: 81 mg Heparin Sodium (Porcine) (Heparin Vial(*)) 5,000 units SUBCUT Q8HR [facility] Last Admin: 04/17/17 05:44 Dose: 5,000 units Azithromycin 500 mg/ Sodium (Chloride) 250 mls @ 250 mls/hr IVPB Q24H [facility] Last Admin: 04/16/17 13:34 Dose: 250 mls/hr Ceftriaxone Sodium 1 gm/ (Sodium Chloride) 50 mls @ 200 mls/hr IVPB Q24H [facility] Last Admin: 04/16/17 15:57 Dose: 200 mls/hr Methylprednisolone Sodium Succinate (Solu-Medrol 40 Mg) 40 mg IV Q8H [facility] Last Admin: 04/17/17 11:42 Dose: 40 mg Mometasone Furoate/Formoterol Fumar (Dulera 200/5 Mdi*) 2 puff INH BID [facility] Last Admin: 04/17/17 07:10 Dose: 2 puff Omeprazole (Prilosec Cap*) 20 mg PO DAILY [facility] Last Admin: 04/17/17 08:28 Dose: 20 mg Oseltamivir Phosphate (Tamiflu Cap*) 75 mg PO BID [facility] Stop: 04/20/17 09:01 Last Admin: 04/17/17 08:28 Dose: 75 mg Tiotropium [place] (Spiriva Cap.Inh*) 1 cap INH DAILY [facility] Last Admin: 04/17/17 07:10 Dose: 1 cap Vital Signs - 8 hr 04/17/17 04/17/17 04/17/17 06:00 07:00 07:01 Temperature Pulse Rate 65 68 66 Respiratory 23 28 24 Rate Blood Pressure 122/77 121/84 (mmHg) O2 Sat by Pulse 97 94 97 Oximetry 04/17/17 04/17/17 04/17/17 07:16 08:00 08:01 Temperature 97.9 F Pulse Rate 79 69 66 Respiratory 17 17 17 Rate Blood Pressure 120/75 (mmHg) O2 Sat by Pulse 97 95 96 Oximetry 04/17/17 04/17/17 04/17/17 08:15 09:00 10:00 Temperature Pulse Rate 67 80 Respiratory 18 17 17 Rate Blood Pressure 142/82 (mmHg) O2 Sat by Pulse 97 97 Oximetry 04/17/17 04/17/17 04/17/17 11:00 11:01 11:17 Temperature Pulse Rate 79 82 79 Respiratory 19 28 17 Rate Blood Pressure 127/78 (mmHg) O2 Sat by Pulse 98 99 97 Oximetry 04/17/17 04/17/17 11:26 11:48 Temperature 100.2 F Pulse Rate Respiratory 21 Rate Blood Pressure (mmHg) O2 Sat by Pulse Oximetry Oxygen Devices in Use Now: Nasal Cannula Appearance: awake and alert, no respiratory distress, appears comfortable sittingin the chair. Ears/Nose/Mouth/Throat: Clear Oropharnyx, Mucous Membranes Moist Neck: NL Appearance and Movements; NL JVP, Trachea Midline Respiratory: Symmetrical Chest Expansion and Respiratory Effort, - - exp wheezes t/o bilat, Cardiovascular: NL Sounds; No Murmurs; No JVD, No Edema Abdominal: NL Sounds; No Tenderness; No Distention Extremities: No Clubbing, Cyanosis, - - slight edema to lower legs +1 Skin: No Rash or Ulcers Neurological: Alert and Oriented x 3, NL Sensation, NL Muscle Strength and Tone Result Diagrams: 04/17/17 05:38 04/17/17 05:38 Assess/Plan/Problems-Billing Assessment: Mr. Vogel is a 61 y.o male with a chronic history of COPD and oxygen dependent. Presented to the Emergency room with increased shortness of breath and cough. Flu A positive , Strep infection in the sputum and urine. Upon evaluating MR. Vogel this if was found to be in severe respiratory distress despite breathing treatments, he was transferred to the ICU and placed on Vapo therm for respiratory support. - Patient Problems (1) Acute and chronic respiratory failure ([id number]) Current Visit: Yes Status: Acute Code(s): J96.20 - ACUTE AND CHR RESP FAILURE, UNSP W HYPOXIA OR HYPERCAPNIA SNOMED Code(s): 21983763 Comment: Transferred to ICU for monitoring and Vapo therm oxygen - Improved today will transfer back to the floor this afternoon Oxygen via Nasal cannula BIPAP at Night Continue IV solumedrol 40 mg every 8 hours Albuterol and DUO NEBS as needed Suspect this is related to underlying PNA strep infection and lung inflamation Flu A positive (2) Influenza A Current Visit: Yes Status: Acute Code(s): J10.1 - FLU DUE TO OTH IDENT INFLUENZA VIRUS W OTH RESP MANIFEST SNOMED Code(s): 972531485 Comment: tamiflu for 5 days supportive care (3) Streptococcus pneumoniae infection Current Visit: Yes Status: Acute Comment: Ceftriaxone 1 gram daily IV continue oxygen support (4) COPD exacerbation Current Visit: No Status: Acute Code(s): J44.1 - CHRONIC OBSTRUCTIVE PULMONARY DISEASE W (ACUTE) EXACERBATION SNOMED Code(s): 710642290539096 Comment: Improving WIll continue IV Solumedrol 40 mg Q 8 hours Albuterol/ipratropium by nebs Oxygen via Nasal cannula BIPAP at night Azithromycin 500mg IVPB (5) DVT prophylaxis Current Visit: Yes Status: Acute Code(s): [id number] - SNOMED Code(s): 524244124 Comment: heparin sub Q (6) DNR (do not resuscitate) Current Visit: Yes Status: Acute Status and Disposition: Transfer back to the floor inpatient medical
[2017-04-17] MEDS: Azithromycin IV(*) 500 MG in NS 0.9% 250 ML* 250 ML IVPB SCH (14:20)
[2017-04-17] MEDS: cefTRIAXone(*) 1 GM in NS 0.9% 50 ML* 50 ML IVPB SCH (17:20)
[2017-04-17 21:48] VITALS: BP 138/76
[2017-04-18] MEDS: Albuterol/Ipratropium NEB.SOL* Albuterol 2.5 MG/Ipratropium 0.5 MG 3 ML INH SCH ×6 (03:39→23:11)
[2017-04-18] MEDS: methylPREDNISolone SOD 40 MG* 1 ML VIAL IV SCH ×3 (03:55→21:31)
[2017-04-18] MEDS: Heparin VIAL(*) 5000 UNITS/ML VIAL (FIVE THOUSAND) SUBCUT SCH ×3 (05:12→21:30)
[2017-04-18] MEDS: Omeprazole CAP* 20 MG PO SCH (07:15)
[2017-04-18 07:59] LABS: ABS Basophils 0 10^3/ul (0-0.2); ABS Eosinophils 0 10^3/ul (0-0.6); ABS Lymphocytes 0.8 10^3/ul (1.0-4.8); ABS Monocytes 0.7 10^3/ul (0-0.8); ABS Neutrophils 11.1 10^3/ul (1.5-7.7); ABS Nucleated RBC 0 10^3/ul; Eosinophil % 0 % (0-6); Hematocrit 39 % (42-52); Hemoglobin 12.9 g/dl (14.0-18.0); Mean Corpuscular HGB Conc 33 g/dl (31-36); Mean Corpuscular Hemoglobin 28 pg (27-31); Mean Corpuscular Volume 86 fL (80-94); Mean Platelet Volume 8 um3 (7.4-10.4); Nucleated Red Blood Cells % 0; Platelet Count 362 10^3/ul (150-450); Red Blood Count 4.55 10^6/ul (4.0-5.4); Red Cell Distribution Width 15 % (10.5-15); White Blood Count 12.6 10^3/ul (3.5-10.8)
[2017-04-18 08:15] LABS: EGFR Non-African American 82.9 (>60)
[2017-04-18] MEDS: Aspirin Low Dose CHEW TAB* 81 MG PO SCH (08:35)
[2017-04-18] MEDS: Ascorbic Acid TAB* 500 MG PO SCH (08:35)
[2017-04-18] MEDS: Oseltamivir CAP* 75 MG PO SCH ×2 (08:35→21:30)
[2017-04-18] MEDS: Mometasone/Formoter 200/5 MDI INH SCH ×2 (08:37→19:39)
[2017-04-18] MEDS: Tiotropium CAP.INH* CAP.INH/18 MCG (USE ORDER SET !) INH SCH (08:38)
--- NOTE | 2017-04-18 09:07 | PN ---
Subjective Date of Service: 04/18/17 Interval History: Pt examined today at the bedside. States that he is feeling better. States the SOB has improved since admission and since yesterday as well. Denies sob now. Denies chest pain, denies nausea denies vomiting. ROS- denies chest pain, denies sob, denies abdominal pain, denies nausea, denies vomiting, denies lightheadedness, denies loc, admits to cough, review of 11 systems completed all others negative, Family History: Unchanged from Admission Social History: Unchanged from Admission Past Medical History: Unchanged from Admission Objective Active Medications: Acetaminophen/Codeine Phosphate (Tylenol/Codeine 30 Mg Tab*) 1 tab PO Q4H PRN PRN Reason: PAIN Last Admin: 04/16/17 11:22 Dose: 1 tab Albuterol (Ventolin 2.5 Mg/3 Ml Neb.Amirah*) 2.5 mg INH Q2H PRN PRN Reason: SOB/WHEEZING Albuterol/Ipratropium (Duoneb (Albuterol 2.5 Mg/Ipratropium 0.5 Mg)) 1 neb INH [id number] AWAKE [facility] Last Admin: 04/18/17 08:39 Dose: 1 neb Ascorbic Acid (Vitamin C Tab*) 500 mg PO QAM [facility] Last Admin: 04/18/17 08:35 Dose: 500 mg Aspirin (Aspirin Low Dose Tab*) 81 mg PO DAILY [facility] Last Admin: 04/18/17 08:35 Dose: 81 mg Heparin Sodium (Porcine) (Heparin Vial(*)) 5,000 units SUBCUT Q8HR [facility] Last Admin: 04/18/17 05:12 Dose: 5,000 units Azithromycin 500 mg/ Sodium (Chloride) 250 mls @ 250 mls/hr IVPB Q24H [facility] Last Admin: 04/17/17 14:20 Dose: 250 mls/hr Ceftriaxone Sodium 1 gm/ (Sodium Chloride) 50 mls @ 200 mls/hr IVPB Q24H [facility] Last Admin: 04/17/17 17:20 Dose: 200 mls/hr Methylprednisolone Sodium Succinate (Solu-Medrol 40 Mg) 40 mg IV Q8H [facility] Last Admin: 04/18/17 03:55 Dose: 40 mg Mometasone Furoate/Formoterol Fumar (Dulera 200/5 Mdi*) 2 puff INH BID [facility] Last Admin: 04/18/17 08:37 Dose: 2 puff Omeprazole (Prilosec Cap*) 20 mg PO DAILY@0730 [facility] Last Admin: 04/18/17 07:15 Dose: 20 mg Oseltamivir Phosphate (Tamiflu Cap*) 75 mg PO BID [facility] Stop: 04/20/17 09:01 Last Admin: 04/18/17 08:35 Dose: 75 mg Tiotropium [place] (Spiriva Cap.Inh*) 1 cap INH DAILY [facility] Last Admin: 04/18/17 08:38 Dose: 1 cap Vital Signs - 8 hr 04/18/17 04/18/17 04/18/17 03:42 07:24 08:42 Pulse Rate 84 65 Respiratory 16 20 20 Rate O2 Sat by Pulse 99 99 Oximetry 04/18/17 04/18/17 08:44 08:45 Pulse Rate 65 Respiratory 20 Rate O2 Sat by Pulse 99 99 Oximetry Oxygen Devices in Use Now: Nasal Cannula Appearance: NAD, 61 male sitting in chair, Eyes: No Scleral Icterus, PERRLA Ears/Nose/Mouth/Throat: Mucous Membranes Moist Respiratory: Symmetrical Chest Expansion and Respiratory Effort, - - exp wheeze heard in upper lobes, Cardiovascular: NL Sounds; No Murmurs; No JVD Abdominal: NL Sounds; No Tenderness; No Distention Extremities: No Edema Skin: No Rash or Ulcers Neurological: Alert and Oriented x 3 Lines/Tubes/Other Access: Clean, Dry and Intact Peripheral IV Result Diagrams: 04/18/17 07:15 04/18/17 07:15 Assess/Plan/Problems-Billing Assessment: Mr. Vogel is a 61 y.o male with a chronic history of COPD and oxygen dependent. Presented to the Emergency room with increased shortness of breath and cough. Flu A positive , Strep infection in the sputum and urine. Upon evaluating MR. Vogel this if was found to be in severe respiratory distress despite breathing treatments, he was transferred to the ICU and placed on Vapo therm for respiratory support. Now improving - Patient Problems (1) Acute and chronic respiratory failure ([id number]) Current Visit: Yes Status: Acute Priority: High Comment: Improving, less cough, less sob, would like to shower, Oxygen via Nasal cannula BIPAP at Night Continue IV solumedrol 40 mg every 8 hours, consider changing to PO tomorrow, Albuterol and DUO NEBS as needed Suspect this is related to underlying PNA strep infection and lung inflamation Flu A positive (2) DNR (do not resuscitate) Current Visit: Yes Status: Acute Priority: High (3) DVT prophylaxis Current Visit: Yes Status: Acute Priority: High Comment: heparin sub Q (4) Influenza A Current Visit: Yes Status: Acute Priority: High Comment: improving tamiflu for 5 days supportive care (5) Streptococcus pneumoniae infection Current Visit: Yes Status: Acute Priority: High Comment: Improving Ceftriaxone 1 gram daily IV continue oxygen support (6) COPD exacerbation Current Visit: Yes Status: Acute Priority: High Comment: Still with wheeze , but improved, Improving WIll continue IV Solumedrol 40 mg Q 8 hours, consider changing to PO in AM, Albuterol/ipratropium by nebs Oxygen via Nasal cannula BIPAP at night Azithromycin 500mg IVPB (7) Morbid obesity Current Visit: Yes Status: Acute Priority: High Comment: BMI 48.5. Follow With PCP (8) VANESSA (obstructive sleep apnea) Current Visit: Yes Status: Acute Priority: High Comment: Cpap Status and Disposition: D/c Home when able continue nebs, steroids abx and supportive care,
[2017-04-18] MEDS: Azithromycin IV(*) 500 MG in NS 0.9% 250 ML* 250 ML IVPB SCH (14:18)
[2017-04-18] MEDS: cefTRIAXone(*) 1 GM in NS 0.9% 50 ML* 50 ML IVPB SCH (15:58)
[2017-04-19] MEDS: methylPREDNISolone SOD 40 MG* 1 ML VIAL IV SCH ×2 (03:23→12:05)
[2017-04-19] MEDS: Albuterol/Ipratropium NEB.SOL* Albuterol 2.5 MG/Ipratropium 0.5 MG 3 ML INH SCH ×3 (03:24→11:40)
[2017-04-19 05:21] LABS: EGFR Non-African American 89.5 (>60)
[2017-04-19] MEDS: Heparin VIAL(*) 5000 UNITS/ML VIAL (FIVE THOUSAND) SUBCUT SCH (05:28)
[2017-04-19] MEDS: Omeprazole CAP* 20 MG PO SCH (07:22)
[2017-04-19] MEDS: Tiotropium CAP.INH* CAP.INH/18 MCG (USE ORDER SET !) INH SCH (07:33)
[2017-04-19] MEDS: Mometasone/Formoter 200/5 MDI INH SCH (07:34)
[2017-04-19 08:32] LABS: ABS Basophils 0 10^3/ul (0-0.2); ABS Eosinophils 0 10^3/ul (0-0.6); ABS Monocytes 0.5 10^3/ul (0-0.8); ABS Nucleated RBC 0 10^3/ul; Eosinophil % 0 % (0-6); Hematocrit 40 % (42-52); Hemoglobin 13.6 g/dl (14.0-18.0); Lymphocyte % 8.7 % (25-47); Mean Corpuscular HGB Conc 34 g/dl (31-36); Mean Corpuscular Hemoglobin 29 pg (27-31); Mean Corpuscular Volume 85 fL (80-94); Mean Platelet Volume 8 um3 (7.4-10.4); Nucleated Red Blood Cells % 0.1; Platelet Count 362 10^3/ul (150-450); Red Blood Count 4.75 10^6/ul (4.0-5.4); Red Cell Distribution Width 15 % (10.5-15); White Blood Count 11.5 10^3/ul (3.5-10.8)
[2017-04-19 08:45] LABS: EGFR Non-African American 87.2 (>60)
[2017-04-19] MEDS: Oseltamivir CAP* 75 MG PO SCH (09:46)
[2017-04-19] MEDS: Aspirin Low Dose CHEW TAB* 81 MG PO SCH (09:46)
[2017-04-19] MEDS: Ascorbic Acid TAB* 500 MG PO SCH (09:46)
[2017-04-19] MEDS ORDERED: Azithromycin TAB* 250 MG PO SCH (13:00)
--- NOTE | 2017-04-20 12:26 | DS ---
CC: Dr. King.* DISCHARGE SUMMARY: DATE OF ADMISSION: 04/15/17 DATE OF DISCHARGE: 04/19/17 PRIMARY CARE PROVIDER: Dr. King. ATTENDING PHYSICIAN WHILE IN THE HOSPITAL: Keila Purvis MD * (report dictated by Brooke Lyles NP) PRINCIPAL DIAGNOSIS: Include chronic obstructive pulmonary disease exacerbation secondary to influenza and Strep pneumoniae pneumonia. SECONDARY DIAGNOSES: Includes: 1. Chronic obstructive pulmonary disease. 2. Obstructive sleep apnea. 3. Trigeminal neuralgia. DISCHARGE MEDICATIONS: Include: New Medications: 1. Ceftin 500 mg p.o. b.i.d. x5 days. 2. Azithromycin 250 mg p.o. x3 days. 3. Tamiflu 75 mg p.o. for 3 more doses. 4. Prednisone 10 mg daily per taper. 5. Spiriva 1 capsule inhaled daily. 6. Atrovent 0.5 mg inhaler every 4 hours as needed. 7. Prilosec 20 mg daily. 8. DuoNeb one neb inhaler every 3 hours as needed. 9. Vitamin C 500 mg daily. 10. Advair one puff inhaled b.i.d. 11. Lasix 20 mg daily. 12. Albuterol 2.5 mg inhaler every 4 hours as needed. 13. Ventolin 2 puffs inhaler every 4 hours as needed. HISTORY OF PRESENTING ILLNESS AND HOSPITAL COURSE: I would refer you to my H and P dictated on the for further details. In short, Mr. Vogel is a 61-year -old male patient carrying a history of COPD. He presented to the ER on the stating that he had been not feeling well for the last 3 days seen in the last couple of days prior to admission he had been more short of breath, particularly with exertion. He said he had been having cough, chest pain worsening with cough, just not feeling well. He just was not getting any better. He thought initially he had a sinus infection. He was prescribed Biaxin, he was not getting any better, so he came into the ED. He was admitted for COPD exacerbation secondary to influenza and ultimately found to have Strep pneumoniae antigen positive and he was treated for this as well as antibiotics. On first 24 hours, he was initially doing well, but he was having significant coughing jags and on the afternoon on the 4th, he had an episode where he had coughing jags and he went into respiratory failure. He was sent down to the ICU and was placed on Vapotherm and within 24 hours he improved significantly. He was transferred back up to the floor early in the morning on the . He did well on the . He was evaluated by myself. Yesterday, he was doing much better. His oxygen was down to his home line oxygen. He was still wheezing yesterday. He continued on IV Solu-Medrol. The last night, he took 3 laps around the hospital unit. This morning, he had already done 3 laps. He says he had not been wheezing. His chest pain had improved significantly. He is not coughing as much. He remained afebrile. He says that he is not aching anymore. He is back on his chronic O2 at 3 L and sats at 98%. He no longer had any more episodes of tachypnea. He remained afebrile for the last 24 hours. It was felt that he would be stable for discharge. STATUS DURING HOSPITALIZATION: Inpatient. CONDITION ON DISCHARGE: Stable. PHYSICAL EXAM ON DISCHARGE: Vital Signs: Blood pressure 138/76, his pulse is 67, respirations 21, O2 sat 98% on 3 L, his temperature was 97.4. General: At this time, Mr. Vogel is a 61-year-old male patient appears to be well-nourished and well- developed. He does not appear to be in any acute distress. He is awake and he is alert. HEENT: Head: Atraumatic, normocephalic. Eyes: EOMs intact. Sclerae anicteric, not pale. Neck: Supple. Throat: Oral mucosa appears to be moist. No oropharyngeal erythema. Heart: Sounds S1, S2, regular rate and rhythm. Lungs are actually clear to auscultation bilaterally. No wheezing, rales, or rhonchi were noted. Abdomen is soft, flat, nontender. Bowel sounds present. Extremities: Pulses were 2+ throughout. No peripheral edema. Neurologically, the patient is awake, alert, oriented x3. Normal focal deficits. Skin: Intact. DIAGNOSTIC STUDIES/LAB DATA: Labs on discharge: WBC 11.5, RBC of 4.75, hemoglobin of 13.6, hematocrit of 40, platelet count of 362. Blood gas on admission was unremarkable. Sodium 133, potassium 4.5, chloride 98, bicarb 31, BUN was 21, creatinine 0.89, glucose of 285. His urine was obtained it was negative. He was flu A positive. He did have a chest x-ray on admission, which revealed diffuse interstitial opacification, suggestive of chronic interstitial disease versus pulmonary essential edema similar to previous findings. He had an EKG as well, which showed a normal sinus rhythm with a right bundle-branch block rate at 77. No ST elevations or T-wave inversions. Old medical records reviewed. Again he is a complex medical case, please refer the medical chart. STATUS DURING HOSPITALIZATION: Inpatient. DISCHARGE DISPOSITION: Home when stable. ISSUES TO BE ADDRESSED ON DISCHARGE: 1. COPD. At this point, he should continue his oxygen at 3 L, which is his baseline and follow up with Dr. Trevino in 1 to 2 weeks. He is to continue his prednisone taper as prescribed. He is to finish his course of antibiotics; in addition to this, continue his nebs as prescribed, Spiriva and Advair. 2. Influenza A with Strep pneumoniae. At this point, I did give him a full course of Ceftin and azithromycin to complete a full course. I have also given him a Tamiflu as well. He is to return for any fevers, chills, worsening shortness of breath, or any worrisome symptoms. 3. Hyperglycemia. It was noted that his blood sugars have been in the 200s here in the hospital. I suspect that this is probably from his steroid use. His A1c is pending. My plan at this point is to go ahead and I will start him on a small dose of metformin. He can follow with his primary Dr. King for this. I will start him on 500 b.i.d. In addition to this, I will send him out with lancets and we will try to get him a meter if possible. ISSUES TO RETURN TO THE HOSPITAL: Include but not limited to chest pain, shortness of breath, fevers, chills, nausea, vomiting, or any other worrisome symptoms. TIME SPENT: Time spent on the discharge 40 minutes, greater than half the time spent going over the discharge plan with the patient, another half time was spent on implementing the discharge plan. I did discuss the discharge plan with my attending, Dr. Purvis; she is in agreement. BROOKE LYLES NP [id number]/[facility] #: [id number] NANDINI
== END 2017-04-19 14:15 | disposition home or self-care (01) | DRG 177 ==
LOC: ED 09:39 → MEDTELE 11:36 → OBSVTOIN 04-16 10:00 → ICU 04-16 11:34 → MEDTELE 04-17 23:09
PROVIDERS: ADMIT Internal Medicine; ATTEND Internal Medicine
DX: J15.1 Pneumonia due to Pseudomonas (principal); J96.21 Acute and chronic respiratory failure with hypoxia; I24.8 Other forms of acute ischemic heart disease; E66.01 Morbid (severe) obesity due to excess calories; Z68.42 Body mass index [BMI] 45.0-49.9, adult; Z99.81 Dependence on supplemental oxygen; J44.1 Chronic obstructive pulmonary disease with (acute) exacerbation; J10.08 Influenza due to other identified influenza virus with other specified pneumonia; G47.33 Obstructive sleep apnea (adult) (pediatric); G50.0 Trigeminal neuralgia; I45.10 Unspecified right bundle-branch block; R73.9 Hyperglycemia, unspecified; Z66 Do not resuscitate; Z79.1 Long term (current) use of non-steroidal anti-inflammatories (NSAID); Z79.52 Long term (current) use of systemic steroids; Z79.899 Other long term (current) drug therapy; Z88.1 Allergy status to other antibiotic agents; Z88.0 Allergy status to penicillin; Z82.49 Family history of ischemic heart disease and other diseases of the circulatory system; Z82.5 Family history of asthma and other chronic lower respiratory diseases; Z87.891 Personal history of nicotine dependence
CPT/HCPCS: 36415; 36600; 71045; 80048; 80053; 81003; 82550; 82803; 83036; 83605; 83735; 83880; 84484; 85025; 87040; 87070; 87077; 87086; 87186; 87205; 87502; 87899; 93005; 94640; 94760; 96365; A9270-GY; G0378; J0456; J0696; J1644; J1885; J2270; J2920; J2930; J3475; J7512

== ENCOUNTER 2019-09-09 11:08 | Observation (INO) ==
[2019-09-09] MEDS ORDERED: Albuterol/Ipratropium NEB.SOL (2.5/0.5 MG) 3 ML NEB.SOLN INH ONE (11:55)
[2019-09-09] MEDS: NS 0.9% 1000 ml BAG 1,000 ML IV SCH ×2 (12:19→18:07)
[2019-09-09 12:56] LABS: ABS Basophils 0.1 10^3/ul (0-0.2); ABS Eosinophils 0.3 10^3/ul (0-0.6); ABS Lymphocytes 1.4 10^3/ul (1.0-4.8); ABS Monocytes 0.8 10^3/ul (0-0.8); Eosinophil % 3.1 %; Hematocrit 41 % (42-52); Hemoglobin 13.6 g/dL (14.0-18.0); Lymphocyte % 14.3 %; Mean Corpuscular HGB Conc 33 g/dL (31-36); Mean Corpuscular Hemoglobin 29 pg (27-31); Mean Corpuscular Volume 86 fL (80-94); Mean Platelet Volume 8.6 fL (7.4-10.4); Nucleated Red Blood Cells % 0.1; Platelet Count 329 10^3/uL (150-450); Red Blood Count 4.74 10^6 /uL (4.18-5.48); Red Cell Distribution Width 15 % (10-15); White Blood Count 9.8 10^3/uL (3.5-10.8)
[2019-09-09 13:07] LABS: Albumin 4.2 g/dL (3.2-5.2); Albumin/Globulin Ratio 1.8 (1-3); BUN/Creatinine Ratio 17.9 (8-20); Calcium 9.1 mg/dL (8.6-10.3); EGFR Non-African American 92.6 (>60); Globulin 2.4 g/dL (2-4); Potassium 4.2 mmol/L (3.5-5.0); Total Bilirubin 0.3 mg/dL (0.2-1.0); Total Protein 6.6 g/dL (6.4-8.9)
[2019-09-09] MEDS ORDERED: Iohexol 300 (CONTRAST) 10 ML SDV IV ONE (13:24)
[2019-09-09] MEDS ORDERED: DOXYcycline 100 MG in NS 0.9% 250 ml 250 ML IVPB ONE (13:26)
[2019-09-09] MEDS ORDERED: Iodixanol (CONTRAST) 320 MG/ML 100 ML SDV IV ONE (15:19)
[2019-09-09] MEDS ORDERED: Dextrose 50% Syringe 50 ml 25 GM/50 ML SYRINGE IV PUSH PRN (15:22)
[2019-09-09] MEDS: Insulin LISPRO 100 units/ml(*) SUBCUT SCH ×2 (17:41→22:03)
[2019-09-09] MEDS: Albuterol HFA INHALER 8 gm MDI INH SCH ×2 (18:02→22:05)
[2019-09-09] MEDS: Mometasone/Formoter 200/5 MDI INH SCH (20:14)
[2019-09-10] MEDS: Albuterol HFA INHALER 8 gm MDI INH SCH ×4 (00:50→14:56)
[2019-09-10] MEDS ORDERED: DOXYcycline 100 MG in NS 0.9% 250 ml 250 ML IVPB SCH (02:30)
[2019-09-10] MEDS: NS 0.9% 1000 ml BAG 1,000 ML IV SCH (02:46)
[2019-09-10] MEDS: Mometasone/Formoter 200/5 MDI INH SCH (07:41)
[2019-09-10] MEDS: Insulin LISPRO 100 units/ml(*) SUBCUT SCH ×2 (08:24→12:23)
[2019-09-10] MEDS ORDERED: SPIRIVA Respimat (tiotropium) 2.5 mcg/inh Inhaler INH SCH (09:00)
[2019-09-10 12:14] VITALS: BP 152/85
[2019-09-10] MEDS ORDERED: DOXYcycline 100 mg CAP (*) PO ONE (12:57)
== END 2019-09-10 13:45 | disposition home or self-care (01) ==
LOC: MED 11:08 → ED 11:08 → MED 14:58
PROVIDERS: ADMIT Internal Medicine; ATTEND Internal Medicine